=== PATIENT | female | born 1960 | race Caucasian/White ===

== ENCOUNTER 2017-02-26 09:33 | Emergency (ER) | payer OTHER ==
[2017-02-26 10:27] LABS: BILIRUBIN NEGATIVE (NEGATIVE); BLOOD NEGATIVE Ery/uL (NEGATIVE); CLARITY CLEAR (CLEAR); COLOR YELLOW (YELLOW); GLUCOSE (U) 3+ mg/dL (NORMAL); KETONE (U) NEGATIVE (NEGATIVE); LEUKOCYTES NEGATIVE Leu/uL (NEGATIVE); NITRITE NEGATIVE (NEGATIVE); PROTEIN NEGATIVE (NEGATIVE); UROBILINOGEN 0.2 mg/dL (0.2-1.0)
[2017-02-26 10:28] LABS: BASOPHIL 0.6 % (0-2); EOSINOPHIL 2.8 % (0-5); HCT 44.7 % (37.0-47.0); LYMPHOCYTE 20.9 % (15-48); MCH 27.7 pg (25.0-31.0); MCHC 33.6 g/dL (32.0-36.0); MCV 82.6 fL (78.0-100.0); MONOCYTE 7.7 % (0-12); MPV 9.5 fL (6.0-9.5); PLT 314 K/uL (150-400); RBC 5.41 M/uL (4.20-5.40); RDW 15.4 % (11.5-14.0); WBC 10.1 K/uL (4.0-10.5)
[2017-02-26 10:40] LABS: BILIRUBIN - TOTAL 0.5 mg/dL (0.1-1.0); CREATININE 0.6 mg/dL (0.5-1.0); GLOBULIN (CALCULATION) 3.7 g/dL (2.2-4.2); POTASSIUM 4.7 mmol/L (3.5-5.1); TOTAL PROTEIN 7.7 g/dL (6.4-8.3)
[2017-02-26 10:43] LABS: PRO-BNP 17 pg/mL (0-125); TROPONIN T < 0.010 ng/mL
== END 2017-02-26 14:44 | disposition home or self-care (01) ==
LOC: FER 09:33
PROVIDERS: Internal Medicine
DX: S16.1XXA Strain of muscle, fascia and tendon at neck level, initial encounter (principal); G44.309 Post-traumatic headache, unspecified, not intractable; I10 Essential (primary) hypertension; R07.89 Other chest pain; R11.0 Nausea; E11.9 Type 2 diabetes mellitus without complications; Z79.4 Long term (current) use of insulin; Z79.84 Long term (current) use of oral hypoglycemic drugs; Z79.899 Other long term (current) drug therapy; W18.30XA Fall on same level, unspecified, initial encounter; Y92.002 Bathroom of unspecified non-institutional (private) residence as the place of occurrence of the external cause
CPT/HCPCS: 36415; 70450; 71010; 72125; 80053; 81003; 83605; 83690; 83880; 84484; 85025; 85379; 87040; 87339; 93005; J1170; J1885; J2405

== ENCOUNTER 2020-08-06 16:50 | Emergency (ER) | payer OTHER ==
[~2020-08-06 16:50] MED LIST: BASAGLAR K100 UNIT/1 SC; CYCLOBENZAPRINE10 MG PO; FARXIGA5 MG PO; FORTAMET1000 MG PO; LIDOCAINE 5% P1 EACH TOP; LIPITOR20 MG PO; NOVOLOG FL100 UNIT/1 SC; PERCOCET 5-3251 EACH PO; PRINIVIL10 MG PO; VENLAFAXINE H37.5 MG PO; VOLTAREN **OUT50 MG PO; ZOFRAN4 MG PO
[2020-08-06 17:49] LABS: BASOPHIL 0.9 % (0-2); EOSINOPHIL 3.3 % (0-5); HCT 36.8 % (37.0-47.0); HGB 11.4 g/dl (12.5-16.0); LYMPHOCYTE 20.3 % (15-48); MCH 25.4 pg (25.0-31.0); MCV 82.1 fL (78.0-100.0); MPV 9.3 fL (6.0-9.5); NEUTROPHIL 70.1 % (41-80); NRBC 0; PLT 315 K/uL (150-400); RBC 4.48 M/uL (4.20-5.40); RDW 14.2 % (11.5-14.0); WBC 11.6 K/uL (4.0-10.5)
[2020-08-06 18:08] LABS: ALBUMIN 3.2 g/dL (3.4-5.0); BILIRUBIN - TOTAL 0.3 mg/dL (0.2-1.0); GLOBULIN (CALCULATION) 3.9 g/dL; POTASSIUM 3.9 mmol/L (3.5-5.1); TOTAL PROTEIN 7.1 g/dL (6.4-8.2)
[2020-08-06 19:27] LABS: BILIRUBIN NEGATIVE (NEGATIVE); BLOOD NEGATIVE Ery/uL (NEGATIVE); CLARITY CLEAR (CLEAR); COLOR YELLOW (YELLOW); GLUCOSE (U) NORMAL (NORMAL); LEUKOCYTES 1+ Leu/uL (NEGATIVE); NITRITE NEGATIVE (NEGATIVE); PROTEIN NEGATIVE (NEGATIVE); SPECIFIC GRAVITY 1.025 (1.001-1.030); UROBILINOGEN 0.2 mg/dL (0.2-1.0); pH 5.5 (5.0-9.0)
[2020-08-06 19:33] LABS: BACTERIA 1+
[2020-08-06 20:49] LABS: CORONAVIRUS 2019 SARS-COV-2 NEGATIVE (NEGATIVE)
[2020-08-06 20:50] LABS: INFLUENZA A NAA NEGATIVE (NEGATIVE)
[2020-08-06] MEDS ORDERED: ZOFRAN4 M1 PO (20:56)
== END 2020-08-06 21:31 | disposition home or self-care (01) ==
LOC: FER 16:50
PROVIDERS: Emergency Medicine; Nurse Practitioner Family
DX: B34.9 Viral infection, unspecified (principal); E11.9 Type 2 diabetes mellitus without complications; E78.5 Hyperlipidemia, unspecified; Z79.4 Long term (current) use of insulin; Z79.899 Other long term (current) drug therapy; Z20.822 Contact with and (suspected) exposure to COVID-19
CPT/HCPCS: 36415; 71046; 80053; 81001; 82728; 84145; 85025; J2405; J7030; U0002

== ENCOUNTER 2021-05-03 12:15 | Emergency (ER) | payer OTHER ==
[~2021-05-03 12:15] MED LIST changes: +ZOFRAN4 M1 PO
[2021-05-03 13:26] LABS: BASOPHIL 0.4 % (0-2); BILIRUBIN NEGATIVE (NEGATIVE); BLOOD NEGATIVE Ery/uL (NEGATIVE); CLARITY CLEAR (CLEAR); COLOR YELLOW (YELLOW); EOSINOPHIL 22.1 % (0-5); GLUCOSE (U) 3+ mg/dL (NORMAL); HGB 13.2 g/dl (12.5-16.0); LEUKOCYTES NEGATIVE Leu/uL (NEGATIVE); MCH 25.6 pg (25.0-31.0); MCHC 31.4 g/dL (32.0-36.0); MCV 81.6 fL (78.0-100.0); MONOCYTE 3.5 % (0-12); MPV 10.2 fL (6.0-9.5); NEUTROPHIL 57.4 % (41-80); NITRITE NEGATIVE (NEGATIVE); NRBC 0; PLT 368 K/uL (150-400); PROTEIN NEGATIVE (NEGATIVE); RBC 5.15 M/uL (4.20-5.40); RDW 15.4 % (11.5-14.0); SPECIFIC GRAVITY 1.025 (1.001-1.030); UROBILINOGEN 0.2 mg/dL (0.2-1.0)
[2021-05-03 13:32] LABS: WBC 19.1 K/uL (4.0-10.5)
[2021-05-03 13:38] LABS: ALBUMIN 3.7 g/dL (3.4-5.0); BILIRUBIN - TOTAL 0.4 mg/dL (0.2-1.0); BUN/CREAT RATIO (CALC) 26.4 RATIO; CREATININE 0.72 mg/dL (0.51-0.95); GLOBULIN (CALCULATION) 4.5 g/dL; POTASSIUM 3.8 mmol/L (3.5-5.1); TOTAL PROTEIN 8.2 g/dL (6.4-8.2)
[2021-05-03 14:54] LABS: LACTIC ACID 1.6 mmol/L (0.4-1.9)
[2021-05-03] MEDS ORDERED: ZOFRAN4 M1 PO (15:10)
[2021-05-03] MEDS ORDERED: BENTYL10 MG PO (15:10)
== END 2021-05-03 16:55 | disposition home or self-care (01) ==
LOC: FER 12:15
PROVIDERS: Internal Medicine; Nurse Practitioner Family
DX: R10.84 Generalized abdominal pain (principal); R11.2 Nausea with vomiting, unspecified; E11.65 Type 2 diabetes mellitus with hyperglycemia; Z79.4 Long term (current) use of insulin
CPT/HCPCS: 36415; 80053; 81003; 82009; 82150; 83605; 83690; 85025; J1885; J2405; J7030

== ENCOUNTER 2021-10-08 15:20 | Emergency (ER) | payer OTHER ==
[~2021-10-08 15:20] MED LIST changes: +BENTYL10 MG PO
[2021-10-08 16:51] LABS: BASOPHIL 0.8 % (0-2); EOSINOPHIL 3.6 % (0-5); HCT 42.2 % (37.0-47.0); HGB 13.1 g/dl (12.5-16.0); LYMPHOCYTE 21.5 % (15-48); MCH 25.6 pg (25.0-31.0); MCV 82.6 fL (78.0-100.0); MONOCYTE 4.9 % (0-12); MPV 9.6 fL (6.0-9.5); NEUTROPHIL 68.7 % (41-80); NRBC 0; PLT 456 K/uL (150-400); RBC 5.11 M/uL (4.20-5.40); RDW 15.9 % (11.5-14.0); WBC 13.3 K/uL (4.0-10.5)
[2021-10-08 17:07] LABS: ALBUMIN 3.7 g/dL (3.4-5.0); BILIRUBIN - TOTAL 0.4 mg/dL (0.2-1.0); BUN/CREAT RATIO (CALC) 14.8 RATIO; CREATININE 0.88 mg/dL (0.51-0.95); GLOBULIN (CALCULATION) 4.7 g/dL; POTASSIUM 3.9 mmol/L (3.5-5.1); TOTAL PROTEIN 8.4 g/dL (6.4-8.2)
[2021-10-08 17:25] LABS: CORONAVIRUS 2019 SARS-COV-2 NEGATIVE (NEGATIVE); INFLUENZA A NAA NEGATIVE (NEGATIVE)
[2021-10-08 18:38] LABS: BILIRUBIN NEGATIVE (NEGATIVE); BLOOD NEGATIVE Ery/uL (NEGATIVE); CLARITY CLEAR (CLEAR); COLOR YELLOW (YELLOW); GLUCOSE (U) NORMAL (NORMAL); LEUKOCYTES TRACE Leu/uL (NEGATIVE); NITRITE NEGATIVE (NEGATIVE); PROTEIN NEGATIVE (NEGATIVE); UROBILINOGEN 0.2 mg/dL (0.2-1.0); pH 5.5 (5.0-9.0)
[2021-10-08] MEDS ORDERED: BENTYL10 MG PO (18:41)
[2021-10-08 18:46] LABS: BACTERIA TRACE; URINARY RBC RARE
== END 2021-10-08 19:42 | disposition home or self-care (01) ==
LOC: FER 15:20
PROVIDERS: Nurse Practitioner Family
DX: R10.11 Right upper quadrant pain (principal); R11.2 Nausea with vomiting, unspecified; E11.9 Type 2 diabetes mellitus without complications; Z20.822 Contact with and (suspected) exposure to COVID-19
CPT/HCPCS: 36415; 80053; 81001; 83690; 85025; J7030; Q9967; U0002

== ENCOUNTER 2022-03-10 09:32 | Emergency (ER) | payer OTHER ==
[2022-03-10] MEDS ORDERED: NORCO 5-325 TA1 EACH PO (11:53)
== END 2022-03-10 12:15 | disposition home or self-care (01) ==
LOC: FER 09:32
DX: M25.552 Pain in left hip (principal); R10.2 Pelvic and perineal pain; I10 Essential (primary) hypertension; E11.9 Type 2 diabetes mellitus without complications; Z79.4 Long term (current) use of insulin; Z79.84 Long term (current) use of oral hypoglycemic drugs; W01.0XXA Fall on same level from slipping, tripping and stumbling without subsequent striking against object, initial encounter; Y92.009 Unspecified place in unspecified non-institutional (private) residence as the place of occurrence of the external cause
CPT/HCPCS: 71250; Q0162